=== PATIENT | female | born 1995 | race Caucasian/White ===

== ENCOUNTER 2017-05-31 18:50 | Inpatient (IN) | payer OTHER ==
[2017-05-31] MEDS ORDERED: Oxytocin/0.9 % Sodium Chloride 30 UNIT/500 ML BAG IV SCH (23:45)
[2017-05-31] MEDS ORDERED: Sodium Chloride 0.9% 2.5 ML Syringe FLUSH PRN (23:47)
[2017-05-31] MEDS ORDERED: Carboprost Tromethamine 250 MCG/1 ML Amp IM PRN (23:47)
[2017-05-31] MEDS ORDERED: Sodium Chloride 0.9% 10 ML Syringe FLUSH PRN (23:47)
[2017-05-31] MEDS ORDERED: Water For Irrigation,Sterile 1,000 ML Container IRR PRN (23:47)
[2017-05-31] MEDS ORDERED: Tranexamic Acid 1,000 MG in Sodium Chloride 0.9% 100 ML IV PRN (23:47)
[2017-05-31] MEDS ORDERED: Misoprostol 200 MCG Tab PO PRN (23:47)
[2017-05-31] MEDS ORDERED: Nalbuphine 10 MG/1 ML Vial IVPUSH PRN (23:47)
[2017-05-31] MEDS ORDERED: Methylergonovine 0.2 MG/1 ML Amp IM PRN (23:47)
[2017-05-31] MEDS ORDERED: Lidocaine 1% 50 ML MDV INJECT PRN (23:47)
[2017-05-31] MEDS ORDERED: Butorphanol 1 MG/ML SDV IVPUSH PRN (23:47)
--- NOTE | 2017-06-01 06:36 | PCM.LDHP ---
L&D History of Present Illness - General Date of Service: 06/01/17 Admit Problem/Dx: Patient Status Order with Admit Dx/Problem 05/31/17 20:32 Patient Status [ADT] Routine 05/31/17 23:47 Patient Status [ADT] Routine Admission Diagnosis/Problem Admission Diagnosis/Problem - planned 06/01/17 06:31 21yo EDC 06/05/2017 39 3/7wks gest. O+. RI, GBS neg, comes to L&D in active labor 06/01/17 06:34 Source of Information: Patient History Limitations: Reports: No Limitations - History of Present Illness Timing/Duration: Reports: minutes: Improves with: Reports: None Worsens with: Reports: None Associated Symptoms: Reports: vaginal fluid (AROM clear fluid) - Related Data Allergies/Adverse Reactions: Allergies Allergy/AdvReac Type Severity Reaction Status Date / Time morphine Allergy Other Verified 04/07/15 23:34 Penicillins Allergy Rash Verified 04/07/15 23:34 Home Medications: Home Meds PNV95/Ferrous Fumarate/FA [ Tablet] 04/07/15 [History] Past Medical History HEENT History: Reports: None Cardiovascular History: Reports: Other (See Below) Other Cardiovascular History: pericarditis Respiratory History: Reports: None Gastrointestinal History: Reports: GERD Genitourinary History: Reports: None [employer] History: Reports: None, Musculoskeletal History: Reports: None Neurological History: Reports: Migraines Psychiatric History: Reports: None Endocrine/Metabolic History: Reports: None Hematologic History: Reports: Anemia Immunologic History: Reports: None Oncologic (Cancer) History: Reports: None Dermatologic History: Reports: None - Infectious Disease History Infectious Disease History: Reports: None - Past Surgical History HEENT Surgical History: Reports: Tonsillectomy GI Surgical History: Reports: Appendectomy, Cholecystectomy Social & Family History - Family History OBGYN: Reports: - Tobacco Use Smoking Status *Q: Never Smoker Second Hand Smoke Exposure: No - Alcohol Use Days Per Week of Alcohol Use: 0 - Recreational Drug Use Recreational Drug Use: No H&P Review of Systems - Review of Systems: Review Of Systems: See Below General: Reports: No Symptoms HEENT: Reports: No Symptoms Pulmonary: Reports: No Symptoms Cardiovascular: Reports: No Symptoms Gastrointestinal: Reports: No Symptoms Genitourinary: Reports: No Symptoms Musculoskeletal: Reports: No Symptoms Skin: Reports: No Symptoms Psychiatric: Reports: No Symptoms Neurological: Reports: No Symptoms Hematologic/Lymphatic: Reports: No Symptoms Immunologic: Reports: No Symptoms L&D Exam - Exam Exam: See Below - Vital Signs Weight: 96.162 kg - OB Specific Fundal Height In cm: 40 Contraction Intensity: Strong Movement: Active Heart Rate (FHR) Variability: Moderate (6-25 bmp) Presentation: Vertex Estimated Weight: 3300 - Thomas Score Thomas Score Cervix Position: Midposition Thomas Score Consistency: Soft Thomas Score Effacement: >80% Thomas Score Dilation: > 5 cm Thomas Score Infant's Station: -2 Thomas Score Total: 10 - Exam General: Alert, Oriented, Cooperative HEENT: Hearing Intact Cardiovascular: Regular Rhythm GI/Abdominal Exam: Soft, Non-Tender Rectal Exam: Deferred Genitourinary: Normal external exam, Normal bimanual exam, Cervical dilitation Back Exam: Full Range of Motion Extremities: Normal Range of Motion, Non-Tender, No Pedal Edema, Normal Capillary Refill Skin: Warm, Dry, Intact Neurological: Cranial Nerves Intact, Normal Speech, Normal Tone Psychiatric: Alert, Normal Affect, Normal Mood - Patient Data Lab Results Last 24 hrs: Laboratory Results - last 24 hr 05/31/17 05/31/17 Range/Units 00:00 00:00 WBC 11.95 H (4.0-11.0) K/uL RBC 4.32 (4.30-5.90) M/uL Hgb 12.4 (12.0-16.0) g/dL Hct 37.3 (36.0-46.0) % MCV 86.3 (80.0-98.0) fL MCH 28.7 (27.0-32.0) pg MCHC 33.2 (31.0-37.0) g/dL RDW Std Deviation 47.8 (28.0-62.0) fl RDW Coeff of Elisa 15 (11.0-15.0) % Plt Count 316 (150-400) K/uL MPV 10.40 (7.40-12.00) fL Nucleated RBC % 0.0 /100WBC Nucleated RBCs # 0 K/uL Blood Type O POSITIVE Antibody Screen NEGATIVE Result Diagrams: 05/31/17 00:00 - Problem List (1) Supervision of normal IUP (intrauterine ) in multigravida SNOMED Code(s): 121111385, 243985122, 864320055 ICD Code: Z34.80 - ENCOUNTER FOR SUPRVSN OF NORMAL , UNSP TRIMESTER Status: Acute Priority: High Current Visit: Yes Qualifiers: Trimester: third trimester Qualified Code(s): Z34.83 - Encounter for supervision of other normal , third trimester Problem List Initiated/Reviewed/Updated: Yes Orders Last 24hrs: Active Orders 24 hr Category Date Time Status Patient Status [ADT] Routine ADT 05/31/17 20:32 Active Patient Status [ADT] Routine ADT 05/31/17 23:47 Active Heart Tones [RC] CONTINUOUS Care 05/31/17 23:47 Active Non Stress Test [RC] PER UNIT ROUTINE Care 05/31/17 20:32 Active Non Stress Test [RC] PER UNIT ROUTINE Care 05/31/17 23:47 Active May Shower [RC] ASDIRECTED Care 05/31/17 23:47 Active Notify Provider [RC] PRN Care 05/31/17 23:47 Active Up ad Elizabeth [RC] ASDIRECTED Care 05/31/17 20:32 Active Up ad Elizabeth [RC] ASDIRECTED Care 05/31/17 23:47 Active Vaginal Exam [RC] Click to Edit Care 05/31/17 20:32 Active Vaginal Exam [RC] PRN Care 05/31/17 23:47 Active Vital Signs [RC] PER UNIT ROUTINE Care 05/31/17 20:32 Active Vital Signs [RC] PER UNIT ROUTINE Care 05/31/17 23:47 Active Butorphanol [Stadol] Med 05/31/17 23:47 Active 1 mg IVPUSH Q1H PRN Carboprost Tromethamine [Hemabate DS] Med 05/31/17 23:47 Active 250 mcg IM ASDIRECTED PRN Lactated Ringers [Ringers, Lactated] 1,000 ml Med 05/31/17 23:45 Active IV ASDIRECTED Lidocaine 1% [Xylocaine 1%] Med 05/31/17 23:47 Active 50 ml INJECT .ONCE PRN Methylergonovine [Methergine] Med 05/31/17 23:47 Active 0.2 mg IM ASDIRECTED PRN Misoprostol [Cytotec] Med 05/31/17 23:47 Active 200 mcg PO .ONCE PRN Nalbuphine [Nubain] Med 05/31/17 23:47 Active 10 mg IVPUSH Q1H PRN Oxytocin/0.9 % Sodium Chloride [Oxytocin 30 Unit/500 ML Med 05/31/17 23:45 Active -NS] 30 unit in 500 ml IV TITRATE Sodium Chloride 0.9% [Saline Flush] Med 05/31/17 23:47 Active 10 ml FLUSH ASDIRECTED PRN Sodium Chloride 0.9% [Saline Flush] Med 05/31/17 23:47 Active 2.5 ml FLUSH ASDIRECTED PRN Tranexamic Acid [Cyklokapron] 1,000 mg Med 05/31/17 23:47 Active Sodium Chloride 0.9% [Normal Saline] 100 ml IV ONETIME Water For Irrigation,Sterile [Sterile Water for Med 05/31/17 23:47 Active Irrigation] 1,000 ml IRR ASDIRECTED PRN Scalp Electrode [WOMSER] Per Unit Routine Oth 05/31/17 23:47 Ordered Peripheral IV Insertion Adult [OM.PC] Routine Oth 05/31/17 23:47 Ordered Resuscitation Status Routine Resus Stat 05/31/17 20:32 Ordered Medication Orders Butorphanol Tartrate (Stadol) 1 mg IVPUSH Q1H PRN PRN Reason: Pain Carboprost Tromethamine (Hemabate Ds) 250 mcg IM ASDIRECTED PRN PRN Reason: Post Hemorrhage Lactated Ringer's (Ringers, Lactated) 1,000 mls @ 150 mls/hr IV ASDIRECTED ELVA Oxytocin/Sodium Chloride (Oxytocin 30 Unit/500 Ml-Ns) 30 unit in 500 mls @ 999 mls/hr IV TITRATE ELVA Tranexamic Acid 1,000 mg/ (Sodium Chloride) 110 mls @ 660 mls/hr IV ONETIME PRN PRN Reason: Bleeding Lidocaine HCl (Xylocaine 1%) 50 ml INJECT .ONCE PRN PRN Reason: Laceration repair Methylergonovine Maleate (Methergine) 0.2 mg IM ASDIRECTED PRN PRN Reason: Post Hemorrhage Misoprostol (Cytotec) 200 mcg PO .ONCE PRN PRN Reason: Post Hemorrhage Nalbuphine HCl (Nubain) 10 mg IVPUSH Q1H PRN PRN Reason: Pain (severe 7-10) Sodium Chloride (Saline Flush) 10 ml FLUSH ASDIRECTED PRN PRN Reason: Keep Vein Open Sodium Chloride (Saline Flush) 2.5 ml FLUSH ASDIRECTED PRN PRN Reason: Keep Vein Open Sterile Water (Sterile Water For Irrigation) 1,000 ml IRR ASDIRECTED PRN PRN Reason: delivery Assessment/Plan Comment:: Labor A: 21yo EDC 06/05/2017 39 3/7wks gest. O+. RI, GBS neg, comes to L&D in active labor P: Admit to L&D, desires natural but pain meds prn, anticipate . Dr Maxwell updated
[2017-06-01] MEDS: Lactated Ringers 1,000 ML IV SCH ×2 (07:41→08:53)
--- NOTE | 2017-06-01 08:47 | PCM.PREANE ---
Preanesthetic Assessment - Anesthesia/Transfusion/Family Hx Family History of Anesthesia Reaction: No - Physical Assessment NPO Status Time: 08:00 Height: 1.6 m Weight: 96.162 kg ASA Class: 1 Mental Status: Alert & Oriented x3 Airway Class: Mallampati = 2 Dentition: Reports: Normal Dentition - Lab Values: Laboratory Last Values WBC 11.95 K/uL (4.0-11.0) H 05/31/17 00:00 RBC 4.32 M/uL (4.30-5.90) 05/31/17 00:00 Hgb 12.4 g/dL (12.0-16.0) 05/31/17 00:00 Hct 37.3 % (36.0-46.0) 05/31/17 00:00 MCV 86.3 fL (80.0-98.0) 05/31/17 00:00 MCH 28.7 pg (27.0-32.0) 05/31/17 00:00 MCHC 33.2 g/dL (31.0-37.0) 05/31/17 00:00 RDW Std Deviation 47.8 fl (28.0-62.0) 05/31/17 00:00 RDW Coeff of Elisa 15 % (11.0-15.0) 05/31/17 00:00 Plt Count 316 K/uL (150-400) 05/31/17 00:00 MPV 10.40 fL (7.40-12.00) 05/31/17 00:00 Nucleated RBC % 0.0 /100WBC 05/31/17 00:00 Nucleated RBCs # 0 K/uL 05/31/17 00:00 Blood Type O POSITIVE 05/31/17 00:00 Antibody Screen NEGATIVE 05/31/17 00:00 - Allergies Allergies/Adverse Reactions: Allergies Allergy/AdvReac Type Severity Reaction Status Date / Time morphine Allergy Other Verified 04/07/15 23:34 Penicillins Allergy Rash Verified 04/07/15 23:34 - Acknowledgements Anesthesia Type Planned: Epidural Pt an Appropriate Candidate for the Planned Anesthesia: Yes Alternatives and Risks of Anesthesia Discussed w Pt/Guardian: Yes Pt/Guardian Understands and Agrees with Anesthesia Plan: Yes PreAnesthesia Questionnaire HEENT History: Reports: None Cardiovascular History: Reports: Other (See Below) Other Cardiovascular History: pericarditis Respiratory History: Reports: None Gastrointestinal History: Reports: GERD Genitourinary History: Reports: None [employer] History: Reports: None, Musculoskeletal History: Reports: None Neurological History: Reports: Migraines Psychiatric History: Reports: None Endocrine/Metabolic History: Reports: None Hematologic History: Reports: Anemia Immunologic History: Reports: None Oncologic (Cancer) History: Reports: None Dermatologic History: Reports: None - Infectious Disease History Infectious Disease History: Reports: None - Past Surgical History HEENT Surgical History: Reports: Tonsillectomy GI Surgical History: Reports: Appendectomy, Cholecystectomy - SUBSTANCE USE Smoking Status *Q: Never Smoker Second Hand Smoke Exposure: No Days Per Week of Alcohol Use: 0 Recreational Drug Use History: No - HOME MEDS Home Medications: Home Meds PNV95/Ferrous Fumarate/FA [ Tablet] 04/07/15 [History] - CURRENT (IN HOUSE) MEDS Current Meds: Current Medications Butorphanol Tartrate (Stadol) 1 mg IVPUSH Q1H PRN PRN Reason: Pain Carboprost Tromethamine (Hemabate Ds) 250 mcg IM ASDIRECTED PRN PRN Reason: Post Hemorrhage Lactated Ringer's (Ringers, Lactated) 1,000 mls @ 150 mls/hr IV ASDIRECTED [facility] Last Admin: 06/01/17 07:41 Dose: 999 mls/hr Oxytocin/Sodium Chloride (Oxytocin 30 Unit/500 Ml-Ns) 30 unit in 500 mls @ 999 mls/hr IV TITRATE [facility] Tranexamic Acid 1,000 mg/ (Sodium Chloride) 110 mls @ 660 mls/hr IV ONETIME PRN PRN Reason: Bleeding Lidocaine HCl (Xylocaine 1%) 50 ml INJECT .ONCE PRN PRN Reason: Laceration repair Methylergonovine Maleate (Methergine) 0.2 mg IM ASDIRECTED PRN PRN Reason: Post Hemorrhage Misoprostol (Cytotec) 200 mcg PO .ONCE PRN PRN Reason: Post Hemorrhage Nalbuphine HCl (Nubain) 10 mg IVPUSH Q1H PRN PRN Reason: Pain (severe 7-10) Sodium Chloride (Saline Flush) 10 ml FLUSH ASDIRECTED PRN PRN Reason: Keep Vein Open Sodium Chloride (Saline Flush) 2.5 ml FLUSH ASDIRECTED PRN PRN Reason: Keep Vein Open Sterile Water (Sterile Water For Irrigation) 1,000 ml IRR ASDIRECTED PRN PRN Reason: delivery Discontinued Medications Fentanyl/Bupivacaine HCl (Tnlqwdan-Rvrfm-Xo 2 Mcg/Ml-0.125%) Confirm Administered Dose 100 mls @ as directed EP [facility] ONE Stop: 06/01/17 08:16
--- NOTE | 2017-06-01 08:51 | PCM.PRNOTE ---
- Free Text/Narrative Note: Anes Note Patient requests epidural for L&D. Risks and methdos discussed. Sitting position, bet prep to back X3. Sterilr drape applied. Level L2-L3, midline aprroach. Local !5 lido. !7 X 37/7 tuohy needls, single attempt acheived epidural space single attempt using MIKHAIL technique. Cath threaded 3 cm wioth Sterile dressing applied. Test dose neg Load 10 cc pump solution slowly. Pump started at 8 cc/hr with 6 cc q 20 minute prn bolus. Rey reports excellent T10 lelvel of analgesia. Time with rey [id number] Oneil Perez [employer]
[2017-06-01] MEDS ORDERED: Lanolin 100% Cream 7 GM Tube TOP PRN (10:18)
[2017-06-01] MEDS ORDERED: Acetaminophen 500 MG Tab PO PRN ×2 (10:18)
[2017-06-01] MEDS ORDERED: Docusate Sodium 100 MG Cap PO PRN (10:18)
[2017-06-01] MEDS ORDERED: Bisacodyl 10 MG Supp RECTAL PRN (10:18)
[2017-06-01] MEDS ORDERED: Ibuprofen 400 MG Tab PO PRN (10:18)
[2017-06-01] MEDS ORDERED: Witch Hazel Medicated Pads 40/Jar TOP PRN (10:18)
[2017-06-01] MEDS ORDERED: oxyCODONE 5 MG Tab PO PRN (10:18)
[2017-06-01] MEDS ORDERED: Benzocaine/Menthol 20%-0.5% Spray 78 GM Cannister TOP PRN (10:18)
[2017-06-01] MEDS: Ibuprofen 800 MG Tab PO PRN ×2 (11:01→19:55)
[2017-06-02] MEDS: Ibuprofen 800 MG Tab PO PRN ×2 (02:18→09:09)
--- NOTE | 2017-06-02 07:32 | PCM.DCSUM1 ---
Discharge Summary - Hospital Course Free Text/Narrative:: Discharge home with . Follow up in 6 weeks or sooner if needed. - Discharge Data Discharge Date: 06/02/17 Discharge Disposition: Home, Self-Care 01 Condition: Good - Discharge Diagnosis/Problem(s) (1) Supervision of normal IUP (intrauterine ) in multigravida SNOMED Code(s): 843060127, 114491402, [id number] ICD Code: Z34.80 - ENCOUNTER FOR SUPRVSN OF NORMAL , UNSP TRIMESTER Status: Acute Priority: High Current Visit: Yes Qualifiers: Trimester: third trimester Qualified Code(s): Z34.83 - Encounter for supervision of other normal , third trimester - Patient Instructions Diet: Usual Diet as Tolerated Activity: As Tolerated, No Strenuous Activities, Rest and Relax Today Driving: May Drive Today Showering/Bathing: May Shower Notify Provider of: Fever, Increased Pain, Swelling and Redness, Nausea and/or Vomiting - Discharge Plan Home Medications: Home Meds PNV95/Ferrous Fumarate/FA [ Tablet] 04/07/15 [History] Referrals: [facility] [Outside] Kishan Maxwell MD [Family Provider] - 07/13/17 1:30 pm - General Info Date of Service: 06/02/17 Admission Dx/Problem (Free Text: Patient Status Order with Admit Dx/Problem 05/31/17 20:32 Patient Status [ADT] Routine 05/31/17 23:47 Patient Status [ADT] Routine Admission Diagnosis/Problem Admission Diagnosis/Problem - planned 06/01/17 06:31 21yo EDC 06/05/2017 39 3/7wks gest. O+. RI, GBS neg, comes to L&D in active labor 06/01/17 06:34 Functional Status: Reports: Pain Controlled, Tolerating Diet, Ambulating, Urinating - Review of Systems General: Reports: No Symptoms HEENT: Reports: No Symptoms Pulmonary: Reports: No Symptoms Cardiovascular: Reports: No Symptoms Gastrointestinal: Reports: No Symptoms Genitourinary: Reports: No Symptoms Musculoskeletal: Reports: No Symptoms Skin: Reports: No Symptoms Neurological: Reports: No Symptoms Psychiatric: Reports: No Symptoms - Patient Data Vitals - Most Recent: Last Vital Signs Temp 36.1 C 06/02/17 04:00 Pulse 59 L 06/02/17 04:00 Resp 18 06/02/17 04:00 BP 101/58 L 06/02/17 04:00 Pulse Ox 98 06/02/17 04:00 Weight - Most Recent: 96.162 kg Lab Results - Last 24 hrs: Laboratory Results - last 24 hr 06/02/17 Range/Units 05:13 Hgb 11.4 L (12.0-16.0) g/dL Hct 34.9 L (36.0-46.0) % Med Orders - Current: Current Medications Acetaminophen (Tylenol Extra Strength) 500 mg PO Q4H PRN PRN Reason: Pain Last Admin: 06/01/17 16:50 Dose: 500 mg Acetaminophen (Tylenol Extra Strength) 1,000 mg PO Q4H PRN PRN Reason: Pain Benzocaine/Menthol (Dermoplast Pain Relief 20%-0.5% [place]) 78 gm TOP ASDIRECTED PRN PRN Reason: Perineal Comfort Measure Last Admin: 06/01/17 11:01 Dose: 1 canister Bisacodyl (Dulcolax) 10 mg RECTAL .ONCE PRN PRN Reason: Constipation Butorphanol Tartrate (Stadol) 1 mg IVPUSH Q1H PRN PRN Reason: Pain Carboprost Tromethamine (Hemabate Ds) 250 mcg IM ASDIRECTED PRN PRN Reason: Post Hemorrhage Docusate Sodium (Colace) 100 mg PO BID PRN PRN Reason: Constipation Emollient Ointment (Lansinoh Hpa) 0 gm TOP ASDIRECTED PRN PRN Reason: Sore Nipples Lactated Ringer's (Ringers, Lactated) 1,000 mls @ 150 mls/hr IV ASDIRECTED ELVA Last Admin: 06/01/17 08:53 Dose: 150 mls/hr Oxytocin/Sodium Chloride (Oxytocin 30 Unit/500 Ml-Ns) 30 unit in 500 mls @ 999 mls/hr IV TITRATE ELVA Tranexamic Acid 1,000 mg/ (Sodium Chloride) 110 mls @ 660 mls/hr IV ONETIME PRN PRN Reason: Bleeding Ibuprofen (Motrin) 400 mg PO Q4H PRN PRN Reason: Pain Ibuprofen (Motrin) 800 mg PO Q6H PRN PRN Reason: Pain Last Admin: 06/02/17 02:18 Dose: 800 mg Lidocaine HCl (Xylocaine 1%) 50 ml INJECT .ONCE PRN PRN Reason: Laceration repair Methylergonovine Maleate (Methergine) 0.2 mg IM ASDIRECTED PRN PRN Reason: Post Hemorrhage Misoprostol (Cytotec) 200 mcg PO .ONCE PRN PRN Reason: Post Hemorrhage Nalbuphine HCl (Nubain) 10 mg IVPUSH Q1H PRN PRN Reason: Pain (severe 7-10) Oxycodone HCl (Oxycodone) 5 mg PO Q2H PRN PRN Reason: Pain Sodium Chloride (Saline Flush) 10 ml FLUSH ASDIRECTED PRN PRN Reason: Keep Vein Open Sodium Chloride (Saline Flush) 2.5 ml FLUSH ASDIRECTED PRN PRN Reason: Keep Vein Open Sterile Water (Sterile Water For Irrigation) 1,000 ml IRR ASDIRECTED PRN PRN Reason: delivery Witch Ann (Tucks) 1 pad TOP ASDIRECTED PRN PRN Reason: comfort care Last Admin: 06/01/17 11:01 Dose: 1 tub Discontinued Medications Fentanyl/Bupivacaine HCl (Lgynrksr-Qzovs-Dz 2 Mcg/Ml-0.125%) Confirm Administered Dose 100 mls @ as directed EP .[facility] ONE Stop: 06/01/17 08:16 - Exam General: Reports: Alert, Oriented, Cooperative, No Acute Distress Lungs: Reports: Clear to Auscultation, Normal Respiratory Effort Cardiovascular: Reports: Regular Rate, Regular Rhythm, No Murmurs GI/Abdominal Exam: Soft, Non-Tender (Female) Exam: Vaginal Bleeding Rectal (Female) Exam: Deferred Back Exam: Reports: Full Range of Motion Extremities: Normal Range of Motion, Non-Tender, No Pedal Edema, Normal Capillary Refill Skin: Reports: Warm, Dry, Intact Wound/Incisions: Reports: Healing Well Neurological: Reports: No New Focal Deficit, Normal Speech, Normal Tone Psy/Mental Status: Reports: Alert, Normal Affect, Normal Mood
--- NOTE | 2017-06-02 08:07 | PCM.POSTAN ---
POST ANESTHESIA ASSESSMENT - MENTAL STATUS Mental Status: Alert - RESPIRATORY Respiratory Status: Respiratory Rate WNL - CARDIOVASCULAR CV Status: Pulse Rate WNL - GASTROINTESTINAL GI Status: No Symptoms - POST OP HYDRATION Hydration Status: Adequate & Stable
--- NOTE | 2017-06-02 08:08 | PCM48HPAN ---
Post Anesthesia Note - EVALUATION WITHIN 48HRS OF ANESTHETIC Vital Signs in Normal Range: Yes Patient Participated in Evaluation: Yes Respiratory Function Stable: Yes Airway Patent: Yes Cardiovascular Function Stable: Yes Hydration Status Stable: Yes Pain Control Satisfactory: Yes Nausea and Vomiting Control Satisfactory: Yes Mental Status Recovered: Yes Resp Rate: 18
[2017-06-02 09:21] VITALS: BP 112/70
--- NOTE | 2017-06-02 11:27 | OR ---
SURGEON: Kishan Maxwell MD DATE OF PROCEDURE: 06/01/2017 Ms. Agee is a 21-year-old. She is para 1-0-0-1. She is followed in our practice in this , and primarily she was followed by me. Her GBS status is negative, and she had no issue in her . She is admitted in active labor. At the time of admission, she was 6-7 cm with spontaneous rupture of membranes with clear fluid, and she was 90% effaced, in vertex, and -2. The patient had epidural, but it was not totally adequate for her pain relief. The patient progressed, and she was able to accomplish normal spontaneous vaginal delivery of a male fetus. scores reported 8 and 9, and the placenta delivered spontaneous, complete, and intact. There was no perineal, labial, or vaginal laceration. ESTIMATED BLOOD LOSS: 250-300 mL. COMPLICATIONS: There was no complication. heart rate was category 1 through the entire process of labor. JORGE ALBERTO / CY /[id number]
== END 2017-06-02 13:30 | disposition home or self-care (01) | DRG 775 ==
LOC: MW.OBCHECK 18:50 → MW.OB 18:55 → MW.OBCHECK 23:47 → MW.OB 23:47 → OBSVTOIN 06-01 10:09
PROVIDERS: ADMIT Obstetrics & Gynecology; ATTEND Obstetrics & Gynecology
PROC: 10E0XZZ Delivery of Products of Conception, External Approach (ICD-10-PCS; principal; 2017-06-01)
PROC: 00HU33Z Insertion of Infusion Device into Spinal Canal, Percutaneous Approach (ICD-10-PCS; 2017-06-01)
PROC: 3E0R3BZ Introduction of Anesthetic Agent into Spinal Canal, Percutaneous Approach (ICD-10-PCS; 2017-06-01)
DX: O80 Encounter for full-term uncomplicated delivery (principal); Z3A.37 37 weeks gestation of pregnancy; Z37.0 Single live birth; Z88.6 Allergy status to analgesic agent; Z88.0 Allergy status to penicillin; Z90.49 Acquired absence of other specified parts of digestive tract
CPT/HCPCS: 36415; 59025; 59409; 85014; 85018; 85027; 86850; 86900; 86901; A9270-GY; J7120

== ENCOUNTER 2017-07-27 03:39 | Emergency (ER) | payer OTHER ==
--- NOTE | 2017-07-27 03:47 | EDM.PDOC ---
ED HPI GENERAL MEDICAL PROBLEM - General Chief Complaint: ENT Problem Stated Complaint: FEVER,EAR PAIN,SORE THROAT Time Seen by Provider: 07/27/17 03:47 Source of Information: Reports: Patient - History of Present Illness INITIAL COMMENTS - FREE TEXT/NARRATIVE: HISTORY AND PHYSICAL: History of present illness: [Patient presents with intermittent fever and sore throat increasing in severity over the last 4 days some difficulty with solid food no difficulty with liquid no drooling trismus or muffled voice Complains of bilateral ear pain No nausea vomiting chills sweats ] Review of systems: As per history of present illness and below otherwise all systems reviewed and negative. Past medical history: As per history of present illness and as reviewed below otherwise noncontributory. Surgical history: As per history of present illness and as reviewed below otherwise noncontributory. Social history: No reported history of drug or alcohol abuse. Family history: As per history of present illness and as reviewed below otherwise noncontributory. Physical exam: HEENT: Atraumatic, normocephalic, pupils reactive, negative for conjunctival pallor or scleral icterus, mucous membranes moist, throat clear, neck supple, nontender, trachea midline. lateral ear effusion no pain with movement of the auricle no meningeal signs oropharynx moderate erythema no exudates Lungs: Clear to auscultation, breath sounds equal bilaterally, chest nontender. Heart: S1S2, regular, negative for clicks, rubs, or JVD. Abdomen: Soft, nondistended, nontender. Negative for masses or hepatosplenomegaly. Negative for costovertebral tenderness. Pelvis: Stable nontender. Genitourinary: Deferred. Rectal: Deferred. Extremities: Atraumatic, negative for cords or calf pain. Neurovascular unremarkable. Neuro: Awake, alert, oriented. Cranial nerves II through XII unremarkable. Cerebellum unremarkable. Motor and sensory unremarkable throughout. Exam nonfocal. Diagnostics: [Clinical ] Therapeutics: [ Z-Roni ] Impression: pharyngitis ] Definitive disposition and diagnosis as appropriate pending reevaluation and review of above. 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 throat Pain Score (Numeric/FACES): 5 - Related Data Allergies Allergy/AdvReac Type Severity Reaction Status Date / Time morphine Allergy Other Verified 07/27/17 03:50 Penicillins Allergy Rash Verified 07/27/17 03:50 Home Meds: Home Meds Sertraline [Zoloft] 0 mg PO DAILY 07/27/17 [History] Past Medical History HEENT History: Reports: None Cardiovascular History: Reports: Other (See Below) Other Cardiovascular History: pericarditis Respiratory History: Reports: None Gastrointestinal History: Reports: GERD Genitourinary History: Reports: None 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, Musculoskeletal History: Reports: None Neurological History: Reports: Migraines Psychiatric History: Reports: None Endocrine/Metabolic History: Reports: None Hematologic History: Reports: Anemia Immunologic History: Reports: None Oncologic (Cancer) History: Reports: None Dermatologic History: Reports: None - Infectious Disease History Infectious Disease History: Reports: None - Past Surgical History HEENT Surgical History: Reports: Tonsillectomy GI Surgical History: Reports: Appendectomy, Cholecystectomy Social & Family History - Family History OBGYN: Reports: ED ROS GENERAL - Review of Systems Review Of Systems: See Below ED EXAM, GENERAL - Physical Exam Exam: See Below Course - Vital Signs Last Recorded V/S: Last Vital Signs Temp 97.5 F 07/27/17 03:39 Pulse 80 07/27/17 03:39 Resp 16 07/27/17 03:39 BP 100/74 07/27/17 03:39 Pulse Ox 98 07/27/17 03:39 Departure - Departure Time of Disposition: 03:54 Disposition: Home, Self-Care 01 Condition: Good Clinical Impression: Pharyngitis - Discharge Information Referrals: PCP,None [Primary Care Provider] - Forms: ED Department Discharge Additional Instructions: The following information is given to patients seen in the emergency department who are being discharged to home. This information is to outline your options for follow-up care. We provide all patients seen in our emergency department with a follow-up referral. The need for follow-up, as well as the timing and circumstances, are variable depending upon the specifics of your emergency department visit. If you don't have a primary care physician on staff, we will provide you with a referral. We always advise you to contact your personal physician following an emergency department visit to inform them of the circumstance of the visit and for follow-up with them and/or the need for any referrals to a consulting specialist. The emergency department will also refer you to a specialist when appropriate. This referral assures that you have the opportunity for follow-up care with a specialist. All of these measure are taken in an effort to provide you with optimal care, which includes your follow-up. Under all circumstances we always encourage you to contact your private physician who remains a resource for coordinating your care. When calling for follow-up care, please make the office aware that this follow-up is from your recent emergency room visit. If for any reason you are refused follow-up, please contact the [facility] emergency department at and asked to speak to the emergency department charge nurse.
[2017-07-27 04:05] VITALS: BP 104/63
== END 2017-07-27 04:02 | disposition home or self-care (01) ==
LOC: MW.ED 03:39
DX: J02.9 Acute pharyngitis, unspecified (principal); K21.9 Gastro-esophageal reflux disease without esophagitis; D64.9 Anemia, unspecified; Z88.5 Allergy status to narcotic agent; Z88.0 Allergy status to penicillin; Z79.899 Other long term (current) drug therapy
CPT/HCPCS: 99282

== ENCOUNTER 2018-07-27 18:48 | Emergency (ER) | payer OTHER ==
--- NOTE | 2018-07-27 19:49 | EDM.PDOC ---
ED HPI GENERAL MEDICAL PROBLEM - General Chief Complaint: Skin Complaint Stated Complaint: LUMP NEAR BELLY BUTTON, PAIN Time Seen by Provider: 07/27/18 19:38 Source of Information: Reports: Patient History Limitations: Reports: No Limitations - History of Present Illness INITIAL COMMENTS - FREE TEXT/NARRATIVE: HISTORY AND PHYSICAL: History of present illness: Patient is a 22-year-old female presents to the ED today with concern of a painful lump adjacent to her belly button. Patient states today she was bending over working on some chores at home when she had felt this little bump near her belly button become painful. Patient states she came to the ED because she was concerned and was wanting to make sure she could work out without causing pain or irritation to the bump. Patient does have a scar near the area where hurts as well as the bellybutton piercing. Patient denies any other symptoms or injury. Patient denies fever, chills, chest pain, shortness of breath, or cough. Denies headache, neck stiff ness, change in vision, syncope, or near syncope. Denies nausea, vomiting, abdominal pain, diarrhea, constipation, or dysuria. Has not noted any blood in urine or stool. Patient has been eating and drinking appropriately. Review of systems: As per history of present illness and below otherwise all systems reviewed and negative. Past medical history: As per history of present illness and as reviewed below otherwise noncontributory. Surgical history: As per history of present illness and as reviewed below otherwise noncontributory. Social history: See social history for further information Family history: As per history of present illness and as reviewed below otherwise noncontributory. Physical exam: General: Patient is alert, oriented, and in no acute distress. Patient sitting comfortably on exam table. HEENT: Atraumatic, normocephalic, pupils equal and reactive bilaterally, negative for conjunctival pallor or scleral icterus, mucous membranes moist, TMs normal bilaterally, throat clear, neck supple, nontender, trachea midline. No drooling or trismus noted. No meningeal signs. No hot potato voice noted. Lungs: Clear to auscultation, breath sounds equal bilaterally, chest nontender. Heart: S1S2, regular rate and rhythm without overt murmur Abdomen: Soft, nondistended, nontender. Negative for hepatosplenomegaly. Negative for costovertebral tenderness. There is a 1/2 centimeter mobile/ rubbery lump/mass approximately 2 cm superior to the umbilicus that is superficial in the underlying subcutaneous tissue that is mildly painful to palpation. Pelvis: Stable nontender. Genitourinary: Deferred. Rectal: Deferred. Skin: Intact, warm, dry. No lesions or rashes noted. Extremities: Atraumatic, negative for cords or calf pain. Neurovascular unremarkable. Neuro: Awake, alert, oriented. Cranial nerves II through XII unremarkable. Cerebellum unremarkable. Motor and sensory unremarkable throughout. Exam nonfocal. Notes: Discussed the importance for follow-up with the primary care provider. Voices understanding and is agreeable to plan of care. Denies any further questions or concerns at this time. Diagnostics: None Therapeutics: None Prescription: None Impression: Superficial lump / mass, unspecified Plan: 1. Rest, ice, elevate the affected area. You can apply ice 15 minutes on, 15 minutes off. 2. Tylenol and/or Ibuprofen as directed for pain management or discomfort. 3. Follow up with the primary care provider as discussed. Return to the ED as needed and as discussed. Definitive disposition and diagnosis as appropriate pending reevaluation and review of above. abdominal area Pain Score (Numeric/FACES): 8 - Related Data Allergies Allergy/AdvReac Type Severity Reaction Status Date / Time morphine Allergy Other Verified 07/27/18 19:23 Penicillins Allergy Rash Verified 07/27/18 19:23 Home Meds: Home Meds . 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: Musculoskeletal History: Reports: None Neurological History: Reports: Migraines Psychiatric History: Reports: None Endocrine/Metabolic History: Reports: None Hematologic History: Reports: Anemia Immunologic History: Reports: None Oncologic (Cancer) History: Reports: None Dermatologic History: Reports: None - Infectious Disease History Infectious Disease History: Reports: None - Past Surgical History HEENT Surgical History: Reports: Tonsillectomy GI Surgical History: Reports: Appendectomy, Cholecystectomy Social & Family History - Family History Family Medical History: Noncontributory OBGYN: Reports: - Tobacco Use Smoking Status *Q: Never Smoker - Caffeine Use Caffeine Use: Reports: None - Recreational Drug Use Recreational Drug Use: No ED ROS GENERAL - Review of Systems Review Of Systems: ROS reveals no pertinent complaints other than HPI. ED EXAM, SKIN/RASH Exam: See Below (See dictation) Course - Vital Signs Last Recorded V/S: Last Vital Signs Temp 36.3 C 07/27/18 19:23 Pulse 79 07/27/18 19:23 Resp 18 07/27/18 19:23 BP 145/67 H 07/27/18 19:23 Pulse Ox 98 07/27/18 19:23 Departure - Departure Time of Disposition: 19:46 Disposition: Home, Self-Care 01 Clinical Impression: Localized superficial swelling, mass, or lump - Discharge Information Referrals: PCP,None [Primary Care Provider] - Additional Instructions: The following information is given to patients seen in the emergency department who are being discharged to home. This information is to outline your options for follow-up care. We provide all patients seen in our emergency department with a follow-up referral. The need for follow-up, as well as the timing and circumstances, are variable depending upon the specifics of your emergency department visit. If you don't have a primary care physician on staff, we will provide you with a referral. We always advise you to contact your personal physician following an emergency department visit to inform them of the circumstance of the visit and for follow-up with them and/or the need for any referrals to a consulting specialist. The emergency department will also refer you to a specialist when appropriate. This referral assures that you have the opportunity for follow-up care with a specialist. All of these measure are taken in an effort to provide you with optimal care, which includes your follow-up. Under all circumstances we always encourage you to contact your private physician who remains a resource for coordinating your care. When calling for follow-up care, please make the office aware that this follow-up is from your recent emergency room visit. If for any reason you are refused follow-up, please contact the [facility] Emergency Department at and asked to speak to the emergency department charge nurse. [facility] [address] [place] [address] [id number] [address] [address] 1. Rest, ice, elevate the affected area. You can apply ice 15 minutes on, 15 minutes off. 2. Tylenol and/or Ibuprofen as directed for pain management or discomfort. 3. Follow up with the primary care provider as discussed. Return to the ED as needed and as discussed.
[2018-07-27 20:06] VITALS: BP 110/68
== END 2018-07-27 20:01 | disposition home or self-care (01) ==
LOC: MW.ED 18:48
DX: R19.05 Periumbilic swelling, mass or lump (principal); K21.9 Gastro-esophageal reflux disease without esophagitis; Z88.5 Allergy status to narcotic agent; Z88.1 Allergy status to other antibiotic agents
CPT/HCPCS: 99283